=== PATIENT | male | born 1950 | race Caucasian/White ===

== ENCOUNTER 2022-05-25 05:35 | Day surgery (SDC) | payer OTHER ==
[2022-05-24 10:20] LABS: EOSINOPHILS # (AUTO) 0.1 X10'3 (0-0.9); EOSINOPHILS % (AUTO) 3.1 % (0-6); LYMPHOCYTES # (AUTO) 1.5 X10'3 (1.1-4.8); LYMPHOCYTES % (AUTO) 33.7 % (21-51); MEAN CORPUSCULAR HEMOGLOBIN 31.4 PG (27.0-31.0); MEAN CORPUSCULAR HGB CONC 33.6 g/dL (33.0-36.5); MEAN CORPUSCULAR VOLUME 93.5 FL (78-98); MEAN PLATELET VOLUME 8.5 FL (7.4-10.4); MONOCYTES # (AUTO) 0.5 X10'3 (0-0.9); MONOCYTES % (AUTO) 11.4 % (2-12); NEUTROPHILS # (AUTO) 2.2 X10'3 (1.8-7.7); NEUTROPHILS % (AUTO) 50.8 % (42-75); PRE OP HEMATOCRIT 46.4 % (42.0-52.0); PRE OP HEMOGLOBIN 15.6 g/dL (14.0-17.9); PRE OP PLATELET COUNT 188 X10'3 (140-440); RED BLOOD COUNT 4.96 X10'6 (4.70-6.10); RED CELL DISTRIBUTION WIDTH 13.5 % (11.5-14.5)
[2022-05-24 10:21] LABS: CLARITY,URINE CLEAR (Clear); COLOR,URINE YELLOW (Yellow); GLUCOSE, URINE NEGATIVE (Neg); KETONES,URINE NEGATIVE (Neg); LEUKOCYTE ESTERASE ,URINE NEGATIVE (Neg); NITRITES, URINE NEGATIVE (Neg); OCCULT BLOOD,URINE NEGATIVE (Neg); PROTEIN,URINE NEGATIVE (Neg); UROBILINOGEN,URINE 0.2 E.U/dL (0.2-1.0)
[2022-05-24 10:23] LABS: UA COLLECTION TYPE VOIDED
[2022-05-24 10:34] LABS: ALBUMIN/GLOBULIN RATIO 1.3 (1.1-1.5); ALKALINE PHOSPHATASE 72 IU/L (46-116); BLOOD UREA NITROGEN 18 MG/DL (7-18); CALCIUM 9.6 MG/DL (8.5-10.1); CHLORIDE 106 MMOL/L (99-107); PRE OP ALT 44 U/L (30-65); PRE OP ANION GAP 7 (8-16); PRE OP AST 24 U/L (10-37); PRE OP BILIRUB, TOTAL 0.2 MG/DL (0.0-1.0); PRE OP GLUCOSE 109 MG/DL (70-104); PRE OP POTASSIUM 3.6 MMOL/L (3.4-5.1); PRE OP SODIUM 143 MMOL/L (135-145); TOTAL CARBON DIOXIDE 29.7 MMOL/L (24-32); TOTAL PROTEIN 7.2 G/DL (6.4-8.2); eGFR 46 ML/MIN
[2022-05-25] VITALS (7 sets, daily range): BP systolic 106–146; BP diastolic 52–87
[~2022-05-25] VITALS: Ht 185.4 cm; Wt 134.4 kg
[~2022-05-25 05:35] MED LIST: ALLO100T PO; ALPR0.5T8 PO; CEPH-585 PO; HYDR200T80 PO; LOSA50TA3 PO; PENT400T17 PO; SULF1TAB48 PO; ZOLP10TA PO; ceFAZolin inj. 3,000 MG in normal saline 100ml IV soln 100 ML IV ONE; famotidine 20mg tablet PO ONE; ringers solution, lacted 1,000 ML IV SCH; vancomycin 1,500 MG in NS 300ml IV soln IV ONE
[2022-05-25] MEDS ORDERED: proCHLORperazine 10 MG/2 ml inj IV PRN (09:05)
[2022-05-25] MEDS ORDERED: ringers solution, lacted 1,000 ML IV SCH (09:05)
[2022-05-25] MEDS ORDERED: hydrALAZINE 20mg/ml inj. IV PRN (09:05)
[2022-05-25] MEDS ORDERED: meperidine/PF 25mg/ml syringe IV PRN ×3 (09:05)
[2022-05-25] MEDS ORDERED: morphine 4 MG/ML inj SYRINge IV PRN (09:05)
[2022-05-25] MEDS ORDERED: labetalol 20mg/4ml (5mg/ml) syringe IV PRN (09:05)
[2022-05-25] MEDS ORDERED: acetaminophen 1,000mg/100ml IV 100 ML IV PRN (09:05)
[2022-05-25] MEDS ORDERED: ondansetron/PF 4mg/2ml inj IV PRN (09:05)
[2022-05-25] MEDS ORDERED: morphine 2 MG/ML inj. syringe IV PRN (09:05)
[2022-05-25] MEDS ORDERED: midazolam 1 mg/ML 2ml injection ONE (09:14)
[2022-05-25] MEDS ORDERED: fentaNYL /PF 50mcg/ml 5ml ampule ONE (09:14)
[2022-05-25] MEDS ORDERED: LIDOcaine 2% (20mg/ml) 5ml vial ONE (09:57)
[2022-05-25] MEDS ORDERED: propofol inj 20 ML IV ONE ×2 (09:57)
[2022-05-25] MEDS ORDERED: rocuronium 10mg/ml inj IV ONE (09:57)
[2022-05-25] MEDS ORDERED: bacitracin 15gm ointment TP ONE (09:58)
[2022-05-25] MEDS ORDERED: BUPIVAcaine/PF 2.5 mg/ml (0.25%) 30ml vial ONE (09:58)
[2022-05-25] MEDS ORDERED: dexamethasone sod phosphate 4mg/ml inj. ONE (10:00)
[2022-05-25] MEDS ORDERED: ondansetron/PF 4mg/2ml inj ONE (10:00)
[2022-05-25] MEDS ORDERED: vancomycin 1,000mg inj ONE (10:05)
[2022-05-25] MEDS ORDERED: sugammadex 200mg/2ml injection IV ONE (10:29)
--- NOTE | 2022-05-25 10:50 | NUR ---
Received from OR via [facility] , accompanied by Anesthesiologist CASSIA and report given by Anesthesiolgist. PATIENT WITH 20 PIV IN LEFT ARM RUNNING LR AT 100. "SMALL PAIN" UPON ARRIVAL TO RIGHT FOOT. FOOT OF BED GATCHED. VSS. 10L MASK ON WITH 100% SATURATIONS. NON DRAINAGE PRESENT AND + CAP REFILL AND SENSATION TO RIGHT LE. Addendum: 05/25/22 at 1058 by Stephen Bennett RN, RN Amended: Links added.
--- NOTE | 2022-05-25 11:40 | NUR ---
ALL DISCHARGE CRITERIA HAS BEEN MET. VSS, PAIN AT A TOLERABLE LEVEL, VOIDING AND ABLE TO SAFELY AMBULATE AND TRANSFER SELF. IV TAKEN OUT WITHOUT ANY COMPLICATIONS. ALL DISCHARGE INSTRUCTIONS COVERED WITH PATIENT AND ALL QUESTIONS ANSWERED. PATIENT TAKEN OUT VIA WHEELCHAIR TO PERSONAL VEHICLE WHERE FAMILY/FRIEND DROVE PATIENT HOME. Addendum: 05/25/22 at 1158 by Stephen Bennett RN, RN Amended: Links added.
== END 2022-05-25 11:40 | disposition home or self-care (01) ==
LOC: PAS 05:35
PROVIDERS: ATTEND Podiatrist Foot & Ankle Surgery
DX: S86.091A Other specified injury of right Achilles tendon, initial encounter (principal); S86.011A Strain of right Achilles tendon, initial encounter; M19.90 Unspecified osteoarthritis, unspecified site; I10 Essential (primary) hypertension; M10.9 Gout, unspecified; X58.XXXA Exposure to other specified factors, initial encounter; Y93.89 Activity, other specified; Y92.89 Other specified places as the place of occurrence of the external cause; Y99.8 Other external cause status; M25.371 Other instability, right ankle; M25.374 Other instability, right foot; M16.11 Unilateral primary osteoarthritis, right hip; M92.60 Juvenile osteochondrosis of tarsus, unspecified ankle; Z79.899 Other long term (current) drug therapy; L73.8 Other specified follicular disorders; Z87.891 Personal history of nicotine dependence
CPT/HCPCS: 11043; 36415; 80053; 81003; 82948; 85025; 87811; 93005; A6222; J0690; J1100; J2250; J2405; J2704; J3010; J3370; J3490; J7030; J7040; J7120; Z7506; Z7508; Z7512; A4618; A6253; A6449; A7000